=== PATIENT | male | born 1960 | race Caucasian/White ===

== ENCOUNTER 2020-11-18 21:42 | Emergency (ER) | payer OTHER, SELFPAY ==
[2020-11-18 21:53] VITALS: BP 130/72; PULSE 75; RESP 16; TEMP 36.7; O2SAT 94; BMI 31.5
--- NOTE | 2020-11-18 23:14 | ED_ITS ---
HPI - Eye Problem General Chief complaint: Eye Problems Stated complaint: something bothing his right eye, puffy Time Seen by Provider: 11/18/20 21:57 Source: patient Mode of arrival: Ambulatory Limitations: no limitations History of Present Illness HPI Narrative: This is a 60-year-old male comes to the Emergency Department with complaint of his right eye developing some puffiness, particularly the lower eyelid. He has noticed some tearing and slight blurriness of his vision. Patient denies any pain or irritation. He notices this evening when he looked in the mirror. 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 Patient does wear glasses. He does not wear contacts. He has not had similar symptoms in the past. He has not had any known sick contacts. He was not working with any metal. Patient denies any prior surgeries to his eyes. He does take medication for dyslipidemia and a daily aspirin. He does have a eye doctor that he follows with regularly. Related Data Allergies Allergy/AdvReac Type Severity Reaction Status Date / Time No Known Drug Allergies Allergy Verified 11/18/20 23:59 Review of Systems Review of Systems ROS Unobtainable: All systems reviewed & are unremarkable except as noted in HPI and below Patient History Social History Smoking Status: Never smoker Smoking Status: Never smoker Substance Use Type: does not use Exam Narrative Exam Narrative: GENERAL: Alert and oriented x three, well-nourished male in mild distress. HEENT: Head normocephalic, atraumatic, EOMI, pupils reactive, face symmetric, moist mucous membranes Visual acuity: See note General: no globe trauma Eyelids: normal inspection on left, patient has swelling and mild erythema of the lower lid in particular on the right, eyelids everted for exam on rate with no foreign body noted. Conjunctiva/Sclera: normal inspection on left, slightly injected on the right on the lower. Corneas: normal inspection, examined with fluroscein on on the right with no uptake. Patient does have some punctate uptake in the conjunctiva on the right. EOM: intact, no palsy/entrapment Pupils: PERRL, normal accomadation, pupil normal Anterior Chambers: normal inspection, no hypema Posterior: normal fundoscopic on bilaterally NECK: Supple, full range of motion EXTREMITIES: Normal range of motion, no clubbing or edema. Neurovascularly intact. Normal gait. NEUROLOGICAL: Cranial nerves II through XII grossly intact. Moving all extremities SKIN: Warm, dry, no petechiae, no rashes or lesions. Initial Vital Signs Initial Vital Signs: Vital Signs Temperature 98.1 F 11/18/20 21:53 Pulse Rate 75 04 21:53 Respiratory Rate 16 11/18/20 21:53 Blood Pressure 130/72 11/18/20 21:53 Pulse Oximetry 94 11/18/20 21:53 Course Orders Ordered: Discontinued Medications Fluorescein Sodium (Fluorescein 1 Mg Strip) 1 mg EYE-RIGHT NOW ONE Stop: 11/18/20 23:15 Last Admin: 11/19/20 00:14 Dose: 1 mg Documented by: BEULAH Polymyxin/Trimethoprim Sulfate (Polymy B/Trimeth Ophth Prepack) 1 bottle MISC SEEINSTR ONE Stop: 11/18/20 23:54 Last Admin: 11/19/20 00:08 Dose: 2 drops Documented by: BEULAH Proparacaine HCl (Proparacaine 0.5% Ophth Mary) 1 drops EYE-BOTH NOW ONE Stop: 11/18/20 23:15 Last Admin: 11/19/20 00:14 Dose: 1 drops Documented by: BEULAH Vital Signs Vital signs: Vital Signs - 8 hr 11/18/20 21:53 Temperature 98.1 F Pulse Rate 75 Respiratory Rate 16 Blood Pressure 130/72 Pulse Oximetry 94 Discharge Plan Departure Patient Disposition: Home Clinical Impression: Conjunctivitis Qualifiers: Conjunctivitis type: acute Acute conjunctivitis type: bacterial Instructions: DI for Conjunctivitis Activity Restrictions/Additional Instructions: Follow up with your eye doctor/inside sales executive this week if your symptoms are not continuing to improve. Use 2 drops to the affected eye 4 times daily while awake times 10 days You may use cool compresses to the affected eye. Make sure that you wash any washcloths, compresses or similar objects has these can spread viral or bacterial conjunctivitis. You may take Tylenol and/or ibuprofen for any pain. Please return for fevers, rapidly worsening symptoms, decreasing vision, loss of vision, new redness, swelling, pain of the eye or other new or concerning symptoms.
[2020-11-19] MEDS: POLYMY B/TRIMETH OPHTH PREPACK 1 BOTTLE MISC (00:08)
[2020-11-19] MEDS: FLUORESCEIN 1 MG STRIP EYE-RIGHT (00:14)
[2020-11-19] MEDS: PROPARACAINE 0.5% OPHTH SOL 1 DROPS EYE-BOTH (00:14)
== END 2020-11-19 00:15 | disposition home or self-care (01) ==
PROVIDERS: Emergency Provider Emergency Medicine
DX: H10.31 Unspecified acute conjunctivitis, right eye (principal)
CPT/HCPCS: 99282